=== PATIENT | male | born 1990 | race Caucasian/White ===

== ENCOUNTER 2018-05-10 13:45 | Emergency (ER) | payer BC | END 2018-05-10 14:46 | disposition left against medical advice (07) | LOC: M ED 13:45 | DX: L98.9 Disorder of the skin and subcutaneous tissue, unspecified (principal); Z53.21 Procedure and treatment not carried out due to patient leaving prior to being seen by health care provider ==

== ENCOUNTER 2022-06-05 16:34 | Emergency (ER) | payer BC ==
[~2022-06-05] VITALS: Ht 182.9 cm; Wt 84.1 kg
[~2022-06-05 16:34] MED LIST: BENA25CA4 PO
[2022-06-05 16:35] VITALS: BP 145/82
== END 2022-06-05 18:56 | disposition left against medical advice (07) ==
LOC: M ED 17:17
DX: Z53.21 Procedure and treatment not carried out due to patient leaving prior to being seen by health care provider (principal)